=== PATIENT | male | born 2000 | race Two or more races ===

== ENCOUNTER 2022-12-25 17:40 | Emergency (ER) | payer OTHER ==
[~2022-12-25] VITALS: Ht 177.8 cm; Wt 140.9 kg
[~2022-12-25 17:40] MED LIST: NOCURR
[2022-12-25] MEDS ORDERED: CYCLOBENZAPRINE HCL 10 MG TABLET PO ONE (19:45)
[2022-12-25] MEDS ORDERED: KETOROLAC TROMETHAMINE 60 MG/2 ML VIAL IM ONE (19:45)
[2022-12-25] MEDS ORDERED: LIDOCAINE 5% TRANSDERMAL PATCH TD ONE (19:45)
[2022-12-25] MEDS ORDERED: CYCL-448 PO (20:10)
[2022-12-25] MEDS ORDERED: IBUP-1492 PO (20:10)
[2022-12-25 20:17] VITALS: BP 109/75
== END 2022-12-25 20:18 | disposition home or self-care (01) ==
LOC: EMS 17:56
DX: M54.50 Low back pain, unspecified (principal); M62.830 Muscle spasm of back; F12.90 Cannabis use, unspecified, uncomplicated
CPT/HCPCS: 99283; 96372; J1885